=== PATIENT | female | born 1970 | race Asian ===

== ENCOUNTER 2016-09-21 10:39 | Emergency (ER) | payer MEDICAID ==
[~2016-09-21] VITALS: Wt 91.0 kg
[2016-09-21] MEDS ORDERED: ONDANSETRON (ODT) 4 MG TAB ODT STA (11:10)
[2016-09-21] MEDS ORDERED: MECLIZINE 12.5 MG TAB PO ONE (11:30)
[2016-09-21] MEDS ORDERED: SOD CHLORIDE 0.9% 1,000 ML IV STA (12:06)
[2016-09-21 12:48] LABS: BASOPHIL # 0.1 10^3/ul (0.0-0.1); BASOPHILS % 0.4 % (0.0-2.0); EOSINOPHILS # 0.2 10^3/ul (0.0-0.5); EOSINOPHILS % 1.3 % (0.0-7.0); HEMATOCRIT 38.7 % (37.0-47.0); HEMOGLOBIN 12.4 g/dl (12.0-16.0); LYMPHOCYTES # 4.5 10^3/ul (0.8-2.9); LYMPHOCYTES % 38.8 % (15.0-51.0); MEAN CORPUSCULAR HEMOGLOBIN 28.5 pg (29.0-33.0); MEAN PLATELET VOLUME 8.1 fl (7.4-10.4); MONOCYTE # 0.9 10^3/ul (0.3-0.9); MONOCYTES % 7.6 % (0.0-11.0); NEUTROPHIL # 5.9 10^3/ul (1.6-7.5); NEUTROPHILS % 51.6 % (39.0-77.0); PLATELET COUNT 481 10^3/UL (140-415); RED BLOOD COUNT 4.35 10^6/ul (4.20-5.40); RED CELL DISTRIBUTION WIDTH 13.6 % (11.5-14.5); WHITE BLOOD COUNT 11.5 10^3/ul (4.8-10.8)
--- NOTE | 2016-09-21 12:48 | RADRPT ---
PROCEDURE: CT Brain without contrast. CLINICAL INDICATION: dizzy TECHNIQUE: A CT of the brain was performed on a [employer]peed 64-slice CT scanner utilizing axial imaging from the skull base through the vertex without IV contrast. Multiplanar reformatted images were made. Images were reviewed on a PACS workstation. The CTDIvol is 43.48 mGy and the DLP is 630 .20 mGycm. COMPARISON: None FINDINGS: The sulci and ventricles are proportionate and within normal limits in size for patient's age. The rivers-white matter differentiation is preserved. There is no midline shift or mass effect. No ab normal extra-axial fluid collection is seen. Mild periventricular and deep cerebral white matter low attenuation is nonspecific, but most likely represents sequelae of mild chronic small vessel ischem ic white matter disease. Inferiorly within the fourth ventricle, near the left foramina of Luschka, there is a well-circumscr ibed 5 mm hyperdense lesion (series 2, image 6). This may represent a colloid cyst in an atypical l ocation, other hemorrhagic or proteinaceous cyst, or a partially calcified mass. Recommend MRI brai n with contrast for further evaluation. A 2 mm extra-axial hyperdensity in the left insula may represent a vascular calcification, but the p ossibility of a hyperdense artery sign indicating thrombus within a distal left middle cerebral gloria ry branch cannot be completely excluded. Sequelae of prior infection/inflammation, such as cysticer cosis, also cannot be excluded. The visualized paranasal sinuses, orbits, and osseous structures are grossly unremarkable. IMPRESSION: 1. Inferiorly within the fourth ventricle, near the left foramina of Luschka, there is a well-circu mscribed 5 mm hyperdense lesion (series 2, image 6). This may represent a colloid cyst in an atypic al location, other hemorrhagic or proteinaceous cyst, or a partially calcified mass. Recommend MRI brain with contrast for further evaluation. 2. 2 mm extra-axial hyperdensity in the left insula may represent a vascular calcification, but the possibility of a hyperdense artery sign indicating thrombus within a distal left middle cerebral ar jill branch cannot be completely excluded. Sequelae of prior infection/inflammation, such as cystic ercosis, also cannot be excluded. Recommend MRA brain in addition to MRI brain with contrast for fur ther evaluation. 3. Above findings were discussed with Dr. Phil Blount at 12:05 PM on 09/21/2016. RPTAT: AA Emmy Davidson, Physician Date Time Electronically viewed and signed by Emmy Davidson, Physician on 09/21/2016 12:48 RC/
[2016-09-21 13:12] LABS: INR 0.91; PROTIME 12.3 Sec (12.2-14.2)
[2016-09-21 13:15] LABS: CALCIUM 9.1 mg/dl (8.4-10.2); CREATININE 0.66 mg/dl (0.44-1.00); POTASSIUM 4.5 mmol/L (3.5-5.1)
[2016-09-21] MEDS ORDERED: ONDANSETRON 4 MG INJ IV STA (15:13)
[2016-09-21] MEDS ORDERED: morphine 4 MG/ML VIAL IV STA (15:13)
[2016-09-21 16:33] VITALS: BP 160/80; PULSE 77; RESP 18
--- NOTE | 2016-09-21 17:33 | RADRPT ---
PROCEDURE: MRA brain without and with contrast CLINICAL INDICATION: Dizziness TECHNIQUE: 3-D [id number] intracranial MRA was performed on a 3.0T scanner before and after adm inistration of 10 cc Magnevist intravenous contrast. Rotational MIP images were reformatted. The [facility] images were also reviewed. COMPARISON: CT brain 09/21/2016 FINDINGS: The bilateral internal carotid arteries are patent. The bilateral middle, anterior cerebral arterie s are patent. The bilateral vertebral arteries, basilar artery and bilateral posterior cerebral art eries are patent. No aneurysm, or vascular malformation is identified. IMPRESSION: Overall unremarkable MRA of the brain. RPTAT: VV .Mynor St MD, MD Date Time Electronically viewed and signed by .Mynor St MD, on 09/21/2016 17:33 .O/
--- NOTE | 2016-09-21 17:53 | RADRPT ---
PROCEDURE: MRI Brain without and with contrast. CLINICAL INDICATION: Dizziness TECHNIQUE: Multiplanar MRI of the brain without and with contrast was performed on a 3.0 T scanner with the following sequences obtained: T1-weighted, T2-weighted/FLAIR, diffusion weighted (with ADC map), GRE, postcontrast T1-weighted. 10 cc Magnevist intravenous contrast was administered. COMPARISON: CT, MRA brain 09/21/2016 FINDINGS: No acute/recent ischemic infarction or intracranial hemorrhage is identified. No extra-axial fluid collection is seen. A subtle very small lesion is identified in the inferior left fourth ventricle corresponding to the hyperdense lesion on CT which measures about 4 mm; it has faint marginal hypointensity on the GRE se quence (image 13, series 8), which suggests marginal calcification; otherwise, it is barely percepti ble on the other sequences (also seen on the post contrast coronal T1-weighted series, image 14, ser ies 5) and there is no associated enhancement. No increased T1-weighted/decreased T2-weighted signal intensity for significant susceptibility artifact is visualized to suggest hemorrhage, or proteinac eous contents. There is no mass effect or surrounding edema. There is no hydrocephalus. There is no mass effect. No midline shift is identified. The ventricles and sulci are within normal limits for size and configuration. There are a few minimal areas of increased T2-weighted FLAIR signal intensity in the deep white nena er which are nonspecific. No abnormal parenchymal, leptomeningeal or dural enhancement is identifie d. Flow voids are identified in the proximal intracranial arteries and dural sinuses suggesting patency . The mastoid air cells and paranasal sinuses are grossly clear. IMPRESSION: 1. No evidence of acute intracranial pathology. 2. Subtle very small, approximately 4 mm nonenhancing lesion in the inferior left fourth ventricle with associated signal changes suggesting marginal calcification. No associated mass effect, surrou nding edema, or hydrocephalus. The exact etiology is unclear but it is favored to be benign with co nsiderations including subependymoma, partially calcified cyst, possibly post infectious/inflammator y sequela. 3. Minimal nonspecific white matter changes, which may reflect chronic small vessel ischemic change s. RPTAT: VV .Mynor St MD, Date Time Electronically viewed and signed by .Mynor St MD, on 09/21/2016 17:53 .O/
[2016-09-21] MEDS ORDERED: MECL12.574 PO (18:22)
[2016-09-21] MEDS ORDERED: ONDA4TAB14 PO (18:22)
--- NOTE | 2016-09-21 18:33 | ERD ---
ER Documentation Chief Complaint Date/Time DATE: 09/21/16 TIME: 18:31 Chief Complaint DIZZY SINCE YESTERDAY HPI Patient is a 45-year-old female with no medical problems who presents with dizziness. She said that last night she started with dizziness and she has worse dizziness when she moves her head. The symptoms come and go. She had 2 episodes of vomiting. She had no fevers and no pain. She feels like the room is spinning. She has had no treatment as of yet. Upon review of old medical records this is the patient's first visit to the emergency department. She does not currently have a primary doctor. ROS All systems reviewed and are negative except as per history of present illness. Medications Home Meds Active Scripts Ondansetron (Ondansetron Odt) 4 Mg Tab.rapdis, 4 MG PO Q6H Y for NAUSEA AND/OR VOMITING, #30 TAB Prov:SLICK CHOWDHURY MD 09/21/16 Meclizine Hcl* (Antivert*) 12.5 Mg Tab, 25 MG PO Q6H Y for DIZZINESS, #20 TAB Prov:SLICK CHOWDHURY MD 09/21/16 Allergies Allergies: Coded Allergies: Penicillins (Unverified Allergy, Unknown, 09/21/16) PMhx/Soc Medical and Surgical Hx: pt denies Medical Hx, pt denies Surgical Hx Hx Cardiac Disorders: Yes (htn) Hx Alcohol Use: No Hx Substance Use: No Hx Tobacco Use: No Smoking Status: Never smoker FmHx Family History: diabetes Physical Exam Vitals Vital Signs Date Time Temp Pulse Resp B/P Pulse Ox O2 Delivery O2 Flow Rate FiO2 09/21/16 16:33 77 18 160/80 98 Room Air 09/21/16 10:49 98.0 84 18 188/90 99 Physical Exam Const: Moderate distress secondary to dizziness Head: Atraumatic Eyes: Normal Conjunctiva ENT: Normal External Ears, Nose and Mouth. Neck: Full range of motion..~ No meningismus. Resp: Clear to auscultation bilaterally Cardio: Regular rate and rhythm, no murmurs Abd: Soft, non tender, non distended. Normal bowel sounds Skin: No petechiae or rashes Back: No midline or flank tenderness Ext: No cyanosis, or edema Neur: Awake and alert, cranial nerves II through XII are intact, strength is 5 out of 5 in all 4 extremities, no pronator drift, no slurred speech Psych: Normal Mood and Affect Result Diagram: 09/21/16 1240 09/21/16 1240 Results 24 hrs Laboratory Tests Test 09/21/16 11:53 09/21/16 12:40 Bedside Glucose 83mg/dL White Blood Count 11.510^3/ul Red Blood Count 4.3510^6/ul Hemoglobin 12.4g/dl Hematocrit 38.7% Mean Corpuscular Volume 89.0fl Mean Corpuscular Hemoglobin 28.5pg Mean Corpuscular Hemoglobin Concent 32.0g/dl Red Cell Distribution Width 13.6% Platelet Count 37506^3/UL Mean Platelet Volume 8.1fl Neutrophils % 51.6% Lymphocytes % 38.8% Monocytes % 7.6% Eosinophils % 1.3% Basophils % 0.4% Nucleated Red Blood Cells % 0.0/100WBC Neutrophils # 5.910^3/ul Lymphocytes # 4.510^3/ul Monocytes # 0.910^3/ul Eosinophils # 0.210^3/ul Basophils # 0.110^3/ul Nucleated Red Blood Cells # 0.010^3/ul Prothrombin Time 12.3Sec Prothrombin Time Ratio 1.0 INR International Normalized Ratio 0.91 Activated Partial Thromboplast Time 32.0Sec Sodium Level 142mmol/L Potassium Level 4.5mmol/L Chloride Level 101mmol/L Carbon Dioxide Level 29mmol/L Anion Gap 17 Blood Urea Nitrogen 8mg/dl Creatinine 0.66mg/dl Glucose Level 82mg/dl Calcium Level 9.1mg/dl Current Medications Medications (Trade) Dose Ordered Sig/Javi Route PRN Reason Start Time Stop Time Status Last Admin Dose Admin Meclizine HCl (Antivert) 25 mg ONCE ONCE PO 09/21/16 11:30 09/21/16 11:31 DC 09/21/16 11:47 Ondansetron HCl 4 mg 4 mg ONCE STAT ODT 09/21/16 11:10 09/21/16 11:12 DC 09/21/16 11:47 Sodium Chloride (NS) 1,000 ml @ 1,000 mls/hr Q1H STAT IV 09/21/16 12:06 09/21/16 13:05 DC 09/21/16 13:33 Morphine Sulfate (morphine) 4 mg ONCE STAT IV 09/21/16 15:13 09/21/16 15:14 DC 09/21/16 15:24 Ondansetron HCl (Zofran Inj) 4 mg ONCE STAT IV 09/21/16 15:13 09/21/16 15:14 DC 09/21/16 15:24 Procedures/MDM Smoking Cessation Therapy: Pt. was lectured for greater than 3 minutes on the health risks of continued smoking and the benefits of cessation. CT brain shows lesion in the fourth ventricle and recommend MRI of the brain per radiology. MRI/MRA of the brain are done by radiology and showed no significant etiology per radiology. Patient is a 45-year-old female presents with dizziness. CT scan of the brain showed an abnormality in the fourth ventricle so MRI and MRA of the brain were obtained. This lesion was most likely a calcified cyst but there is no bleed. There is no obvious cancer. I doubt meningitis or stroke. I believe outpatient management is appropriate. The patient feels better after meclizine and Zofran. She will be given a prescription for meclizine and Zofran to go home with. I believe outpatient management is appropriate. Lab results and imaging study results were given to the patient prior to discharge. Observation Note: Time: 4 hours Family Hx: Positive for diabetes Evaluation: Multiple exams showed improving symptoms and no evidence of clinical decompensation. Departure Diagnosis: Primary Impression: Dizziness Condition: Fair Patient Instructions: Dizziness, Unk Cause Referrals: Your doctor Additional Instructions: Call your primary care doctor TOMORROW for an appointment during the next 1-2 days.See the doctor sooner or return here if your condition worsens before your appointment time. SLICK CHOWDHURY MD Sep 21, 2016 18:33
== END 2016-09-21 18:30 | disposition home or self-care (01) ==
LOC: E/R 10:39
DX: R42 Dizziness and giddiness (principal); I10 Essential (primary) hypertension; R55 Syncope and collapse
CPT/HCPCS: 70450; 70546; 70553; 80048; 82962; 85025; 85610; 85730; 93005; J2270; J2405; J7030; Z7610; 96374; 96375

== ENCOUNTER 2016-11-09 10:59 | Emergency (ER) | payer MEDICAID ==
[~2016-11-09] VITALS: Wt 110.0 kg
[~2016-11-09 10:59] MED LIST: MECL12.574 PO; ONDA4TAB14 PO
[2016-11-09] MEDS ORDERED: ONDANSETRON (ODT) 4 MG TAB ODT STA (11:40)
--- NOTE | 2016-11-09 11:48 | ERD ---
ER Documentation Chief Complaint Date/Time DATE: 11/09/16 TIME: 11:45 Chief Complaint FEVER X 1 WEEK HPI 46-year-old female with no relevant medical problems presents to the emergency department complaining of dizziness and subjective fever for the past week status. Patient states that she got her MMR and Tdap vaccinations on Saturday and the symptoms started Saturday night. Patient describes the dizziness when she lays down as if the room is spinning. Patient admits to having nausea but denies any vomiting. Patient denies diarrhea, abdominal pain, sore throat, cough, ear pain, congestion. ROS All systems reviewed and are negative except as per history of present illness. Medications Home Meds Active Scripts Acetaminophen* (Tylenol*) 325 Mg Tablet, 2 TAB PO Q4 Y for PAIN AND OR ELEVATED TEMP, #30 TAB Prov:DINESH MAHARAJ PA-C 11/09/16 Nitrofurantoin Monohyd Macrocr* (Macrobid*) 100 Mg Capsr, 100 MG PO BID for 7 Days, CAP Prov:DINESH MAHARAJ PA-C 11/09/16 Ondansetron (Ondansetron Odt) 4 Mg Tab.rapdis, 4 MG PO Q6H Y for NAUSEA AND/OR VOMITING, #30 TAB Prov:SLICK CHOWDHURY MD 09/21/16 Meclizine Hcl* (Antivert*) 12.5 Mg Tab, 25 MG PO Q6H Y for DIZZINESS, #20 TAB Prov:SLICK CHOWDHURY MD 09/21/16 Allergies Allergies: Coded Allergies: Penicillins (Unverified Allergy, Unknown, 09/21/16) PMhx/Soc Medical and Surgical Hx: pt denies Medical Hx, pt denies Surgical Hx Hx Cardiac Disorders: Yes (htn) Hx Alcohol Use: No Hx Substance Use: No Hx Tobacco Use: Yes (1/2 pack qd) Smoking Status: Current every day smoker Physical Exam Vitals Vital Signs Date Time Temp Pulse Resp B/P Pulse Ox O2 Delivery O2 Flow Rate FiO2 11/09/16 11:01 99.0 85 18 130/68 99 Physical Exam GENERAL: well-developed/well-nourished, in no apparent distress, non-toxic appearing HENT: NC/AT, bilateral tympanic membrane is normal with good cone of light, nares patent, oropharynx clear without exudates EYES: Conjunctiva normal, PERRLA, EOMI, no nystagmus noted NECK: Supple, no lymphadenopathy PULM: CTA bilaterally, no rales, rhonchi, or wheezing heard CV: Normal S1S2, RRR, good capillary refill GI: Soft, non-distended, normal bowel sounds, non-tender BACK: No midline tenderness, no masses, No CVAT EXT: No clubbing, cyanosis, or edema NEURO: Alert and orientated to person, place, and time. CN II-IIX intact. Gait and coordination were normal. Hand nursing assistants teacher strength were equal and within normal limits SKIN: Intact, normal turgor PSYCH: Normal mood and mentation, patient denied SI Results 24 hrs Laboratory Tests Test 11/09/16 11:59 Bedside Urine pH (LAB) 6.0 Bedside Urine Protein (LAB) 2+ Bedside Urine Glucose (UA) Negative Bedside Urine Ketones (LAB) 1+ Bedside Urine Blood 3+ Bedside Urine Nitrite (LAB) Positive Bedside Urine Leukocyte Esterase (L 3+ Current Medications Medications (Trade) Dose Ordered Sig/Javi Route PRN Reason Start Time Stop Time Status Last Admin Dose Admin Meclizine HCl (Antivert) 25 mg ONCE ONCE PO 11/09/16 12:00 11/09/16 12:01 DC 11/09/16 11:54 Ondansetron HCl (Zofran Odt) 8 mg ONCE STAT ODT 11/09/16 11:40 11/09/16 11:42 DC 11/09/16 11:54 Nitrofurantoin Macrocrystals (Macrobid) 100 mg ONCE STAT PO 11/09/16 11:53 11/09/16 11:54 DC 11/09/16 12:03 Ceftriaxone Sodium (Rocephin) 1 gm ONCE STAT IM 11/09/16 11:54 11/09/16 11:55 DC 11/09/16 12:03 Procedures/MDM 46-year-old female with no relevant medical problems presents to the emergency department complaining of dizziness and subjective fever for the past week status. Patient states that she got her MMR and Tdap vaccinations on Saturday and the symptoms started Saturday night. Patient likely has a urinary tract infection due to urinalysis. No evidence of sepsis, pyelonephritis, appendicitis, central vertigo. In the ED, patient was given Antivert 25mg and Zofran 8mg ODT.Patient was given ceftriaxone and Macrobid. hemodynamically stable and neurovascular intact to be discharged home. I have discussed the pathology of the condition. Prescriptions Macrobid and Tylenol have been given. I have discussed to see a primary care physician for follow-up examination and management. Discussed to return to the ER if condition worsens or not improves as expected. Patient expressed that they agreed and understood this plan. Departure Diagnosis: Primary Impression: UTI (urinary tract infection) Additional Impression: Dizziness Condition: Stable DINESH MAHARAJ PA-C Nov 09, 2016 11:48
[2016-11-09 11:53] LABS: URINE BLOOD (Dip) POC 3+ (NEGATIVE)
[2016-11-09] MEDS ORDERED: NITROFURANTOIN (SR) 100 MG CAP PO STA (11:53)
[2016-11-09] MEDS ORDERED: CEFTRIAXONE 1 GM INJ IM STA (11:54)
[2016-11-09] MEDS ORDERED: ACET325T33 PO (11:55)
[2016-11-09] MEDS ORDERED: NITR-58 PO (11:55)
[2016-11-09] MEDS ORDERED: MECLIZINE 12.5 MG TAB PO ONE (12:00)
[2016-11-09 12:46] LABS: ADD UMIC YES; UR ASCORBIC ACID NEGATIVE (NEGATIVE); UR BACTERIA FEW /HPF (NONE SEEN); UR BILIRUBIN (Dip) NEGATIVE (NEGATIVE); UR BLOOD (Dip) 3+ mg/dL (NEGATIVE); UR CLARITY CLOUDY (CLEAR); UR COLOR AMBER (YELLOW); UR GLUCOSE (Dip) NEGATIVE (NEGATIVE); UR KETONES (Dip) TRACE mg/dL (NEGATIVE); UR LEUKOCYTE ESTERASE (Dip) 3+ Leu/ul (NEGATIVE); UR MUCUS FEW /HPF (NONE SEEN); UR NITRITE (Dip) POSITIVE (NEGATIVE); UR RBC 29 /HPF (0-5); UR SPECIFIC GRAVITY (Dip) 1.017 (1.003-1.030); UR SQUAMOUS EPITHELIAL CELL MODERATE /HPF (FEW); UR TOTAL PROTEIN (Dip) 2+ mg/dl (NEGATIVE); UR UROBILINOGEN (Dip) 1+ mg/dL (NEGATIVE); UR WBC CLUMPS MANY /HPF (NONE SEEN)
== END 2016-11-09 12:24 | disposition home or self-care (01) ==
LOC: FTE 10:59
DX: N39.0 Urinary tract infection, site not specified (principal); R42 Dizziness and giddiness; R11.0 Nausea
CPT/HCPCS: 81001; 96372; J0696; Z7502; Z7610; 81003

== ENCOUNTER 2017-01-06 23:16 | Emergency (ER) | payer MEDICAID ==
[~2017-01-06] VITALS: Ht 160 cm; Wt 93.0 kg
[~2017-01-06 23:16] MED LIST changes: +ACET325T33 PO; +NITR-58 PO
[2017-01-06 23:23] VITALS: Ht 160 cm; Wt 93.0 kg
[2017-01-07] MEDS ORDERED: KETOROLAC 30 MG INJ IV STA (01:34)
[2017-01-07 02:23] LABS: ADD UMIC YES; UR ASCORBIC ACID NEGATIVE (NEGATIVE); UR BACTERIA MODERATE /HPF (NONE SEEN); UR BILIRUBIN (Dip) NEGATIVE (NEGATIVE); UR BLOOD (Dip) 1+ mg/dL (NEGATIVE); UR CLARITY CLOUDY (CLEAR); UR COLOR YELLOW (YELLOW); UR GLUCOSE (Dip) NEGATIVE (NEGATIVE); UR KETONES (Dip) NEGATIVE (NEGATIVE); UR LEUKOCYTE ESTERASE (Dip) 3+ Leu/ul (NEGATIVE); UR MUCUS MANY /HPF (NONE SEEN); UR NITRITE (Dip) NEGATIVE (NEGATIVE); UR RBC 13 /HPF (0-5); UR SPECIFIC GRAVITY (Dip) 1.026 (1.003-1.030); UR SQUAMOUS EPITHELIAL CELL MODERATE /HPF (FEW); UR TOTAL PROTEIN (Dip) 2+ mg/dl (NEGATIVE); UR URIC ACID CRYSTAL FEW /HPF (NONE SEEN); UR UROBILINOGEN (Dip) NEGATIVE (NEGATIVE)
--- NOTE | 2017-01-07 02:31 | RADRPT ---
PROCEDURE: XR Lumbar Spine. CLINICAL INDICATION: Back pain, radicular symptoms. TECHNIQUE: AP, lateral and cone-down lateral view of the lumbar spine were obtained. COMPARISON: No prior studies are available for comparison. FINDINGS: There is normal vertebral mineralization and alignment. No fracture or subluxation is seen. There is moderate L1-2 and L5-S1 disc height loss. The posterior elements are unremarkable. The soft tissues appear normal. Narrowing and sclerosis of the right sacroiliac joint is noted. IMPRESSION: Moderate L1-2 and L5-S1 disc space narrowing. Physician Jimenez Date Time Electronically viewed and signed by Physician Jimenez on 01/07/2017 02:30 CS/
--- NOTE | 2017-01-07 02:34 | RADRPT ---
PROCEDURE: US Pelvis. CLINICAL INDICATION: pelvic pain TECHNIQUE: Multiple sonographic images of the pelvis were obtained utilizing a transabdominal and endovaginal technique. The images were reviewed on a PACS workstation. COMPARISON: None. FINDINGS: The uterus is heterogeneous and measures 7.7 x 5.6 x 5.2 cm. 4.6 x 4 x 4.4 cm anterior fundal leiomy elana is identified.. The endometrial echo complex is hyperechoic and measures 7.0 mm. There is no meena dence for free fluid. The ovaries are not visualized. No adnexal mass is seen. IMPRESSION: Heterogeneous uterus with a 4.6 cm anterior fundal leiomyoma. The ovaries are not visualized. Physician Jimenez Date Time Electronically viewed and signed by Physician Jimenez on 01/07/2017 02:34 CS/
--- NOTE | 2017-01-07 02:38 | ERD ---
ER Documentation Chief Complaint Chief Complaint LBP WITH RADIATING BILAT HIP PX, AP WHEN LYING FLAT, POST-MENAPAUSAL 5MON HPI This is a 6-year-old female who presents to the emergency department today complaining of low back pain that radiates into her back of her left leg and lower pelvic pain for the past 3 days. States she has taken ibuprofen. Denies any vaginal bleeding, vaginal discharge, fevers or chills, nausea or vomiting. ROS All systems reviewed and are negative except as per history of present illness. Medications Home Meds Active Scripts Naproxen* (Naprosyn*) 500 Mg Tablet, 500 MG PO BID Y for PAIN AND/OR INFLAMMATION, #30 TAB Prov:SINAI MIMS PA-C 01/07/17 Cephalexin* (Keflex*) 500 Mg Capsule, 500 MG PO QID for 7 Days, CAP Prov:SINAI MIMS PA-C 01/07/17 Tramadol HCl (Tramadol HCl) 50 Mg Tablet, 50 MG PO Q4 Y for PAIN, #20 TAB Prov:SINAI MIMS PA-C 01/07/17 Acetaminophen* (Tylenol*) 325 Mg Tablet, 2 TAB PO Q4 Y for PAIN AND OR ELEVATED TEMP, #30 TAB Prov:DINESH MAHARAJ PA-C 11/09/16 Nitrofurantoin Monohyd Macrocr* (Macrobid*) 100 Mg Capsr, 100 MG PO BID for 7 Days, CAP Prov:DINESH MAHARAJ PA-C 11/09/16 Ondansetron (Ondansetron Odt) 4 Mg Tab.rapdis, 4 MG PO Q6H Y for NAUSEA AND/OR VOMITING, #30 TAB Prov:SLICK CHOWDHURY MD 09/21/16 Meclizine Hcl* (Antivert*) 12.5 Mg Tab, 25 MG PO Q6H Y for DIZZINESS, #20 TAB Prov:SLICK CHOWDHURY MD 09/21/16 Allergies Allergies: Coded Allergies: Penicillins (Unverified Allergy, Unknown, 09/21/16) PMhx/Soc Hx Neurological Disorder: Yes (dizziness) Hx Cardiac Disorders: Yes (htn) Hx Alcohol Use: No Hx Substance Use: No Hx Tobacco Use: Yes (1/2 pack qd) Smoking Status: Current every day smoker Physical Exam Vitals Vital Signs Date Time Temp Pulse Resp B/P Pulse Ox O2 Delivery O2 Flow Rate FiO2 01/06/17 23:23 97.8 79 18 160/77 99 Physical Exam Const: NAD Head: Atraumatic Eyes: Normal Conjunctiva ENT: Normal External Ears, Nose and Mouth. Neck: Full range of motion..~ No meningismus. Resp: Clear to auscultation bilaterally Cardio: Regular rate and rhythm, no murmurs Abd: Soft, pelvic pain, non distended. Normal bowel sounds. No tenderness at McBurneys Skin: No petechiae or rashes Back: No midline tenderness. Sided paraspinal tenderness. No CVA tenderness. Ext: No cyanosis, or edema Neur: Awake and alert Psych: Normal Mood and Affect Results 24 hrs Laboratory Tests Test 01/07/17 01:48 Urine Color YELLOW Urine Clarity CLOUDY Urine pH 5.0 Urine Specific [place] 1.026 Urine Ketones NEGATIVEmg/dL Urine Nitrite NEGATIVEmg/dL Urine Bilirubin NEGATIVEmg/dL Urine Urobilinogen NEGATIVEmg/dL Urine Leukocyte Esterase 3+Angelita/ul Urine Microscopic RBC 13/HPF Urine Microscopic WBC 33/HPF Urine Squamous Epithelial Cells MODERATE/HPF Urine Uric Acid Crystals FEW/HPF Urine Bacteria MODERATE/HPF Urine Mucus MANY/HPF Urine Hemoglobin 1+mg/dL Urine Glucose NEGATIVEmg/dL Urine Total Protein 2+mg/dl Current Medications Medications (Trade) Dose Ordered Sig/Javi Route PRN Reason Start Time Stop Time Status Last Admin Dose Admin Ketorolac Tromethamine (Toradol) 30 mg ONCE STAT IV 01/07/17 01:34 01/07/17 01:37 DC 01/07/17 02:10 Cephalexin (Keflex) 500 mg ONCE ONCE PO 01/07/17 03:00 01/07/17 03:01 01/07/17 02:51 DIAGNOSTIC IMAGING REPORT Patient: NIKO LEE : 1970 Age: 46 Sex: F MR #: [id number] DOS: 01/07/17 0000 Ordering MD: SINAI MIMS PA-C Location: [facility] Room/Bed: PROCEDURE: XR Lumbar Spine. CLINICAL INDICATION: Back pain, radicular symptoms. TECHNIQUE: AP, lateral and cone-down lateral view of the lumbar spine were obtained. COMPARISON: No prior studies are available for comparison. FINDINGS: There is normal vertebral mineralization and alignment. No fracture or subluxation is seen. There is moderate L1-2 and L5-S1 disc height loss. The posterior elements are unremarkable. The soft tissues appear normal. Narrowing and sclerosis of the right sacroiliac joint is noted. IMPRESSION: Moderate L1-2 and L5-S1 disc space narrowing. Physician Jimenez Date Time Electronically viewed and signed by Physician Jimenez on 01/07/2017 02: 30 CS/ CC: SINAI MIMS PA-C DIAGNOSTIC IMAGING REPORT Patient: NIKO LEE : 1970 Age: 46 Sex: F MR #: [id number] DOS: 01/07/17 0000 Ordering MD: SINAI MIMS PA-C Location: [facility] Room/Bed: PROCEDURE: US Pelvis. CLINICAL INDICATION: pelvic pain TECHNIQUE: Multiple sonographic images of the pelvis were obtained utilizing a transabdominal and endovaginal technique. The images were reviewed on a PACS workstation. COMPARISON: None. FINDINGS: The uterus is heterogeneous and measures 7.7 x 5.6 x 5.2 cm. 4.6 x 4 x 4.4 cm anterior fundal leiomyoma is identified.. The endometrial echo complex is hyperechoic and measures 7.0 mm. There is no evidence for free fluid. The ovaries are not visualized. No adnexal mass is seen. IMPRESSION: Heterogeneous uterus with a 4.6 cm anterior fundal leiomyoma. The ovaries are not visualized. Physician Jimenez Date Time Electronically viewed and signed by Physician Jimenez on 01/07/2017 02: 34 CS/ CC: SINAI MIMS PA-C Procedures/MDM This is a 46-year-old female who presents to the emergency department today complaining multiple complaints specifically of low back pain and pelvic pain for the past 3 days. On physical exam patient had left-sided back pain that radiates into her left leg and lower pelvic pain. She is afebrile and otherwise well-appearing she does not have any vaginal bleeding. She indicated that she has not had her menstrual cycle for 5 months. Given patient's complaints I did obtain a UA, lumbar spine film as she did have some radicular symptoms into her left leg as well as a pelvic ultrasound UA shows 3+ leukocyte esterase and 33 microscopic white blood cells and 13 microscopic red blood cells with moderate bacteria. Urine was sent for culture test is negative Ultrasound pelvis shows a heterogeneous uterus with a 4.6 cm anterior fundal leiomyoma. Ovaries are not visualized. There is no evidence for free fluid. There is no adnexal mass seen. Lumbar spine films show no fracture or subluxation. There is moderate L1 and L2 and L5 and S1 disc height loss. Soft tissues are normal. There is narrowing and sclerosis of the right SI joint. Symptoms at this time is consistent with back pain, pelvic pain possibly related to fibroids and urinary tract infection. She has no tenderness in her right lower quadrant and no tenderness at McBurney's and I do not feel that she requires further workup or imaging at this time. She is afebrile and otherwise well-appearing. She has no CVA tenderness and I have low suspicion for pyelonephritis or nephrolithiasis Patient was given Toradol here in the emergency department and pain improved. She will be given a prescription for Tramadol, Naprosyn,Keflex for home. Patient was given her first dose of Keflex here in the emergency department. At this time the patient is stable for discharge and outpatient management. Patient should follow up with their PCP in the next 1-2 days. They may return to the emergency department sooner for any persistent or worsening of symptoms. Patient understood and agreed with the plan. Departure Diagnosis: Primary Impression: Multiple complaints Additional Impression: UTI (urinary tract infection) Urinary tract infection type: site unspecified Hematuria presence: with hematuria Qualified Code: N39.0 - Urinary tract infection with hematuria, site unspecified Condition: Fair SINAI MIMS PA-C Jan 07, 2017 02:38
[2017-01-07] MEDS ORDERED: TRAM50TA2 PO (02:50)
[2017-01-07] MEDS ORDERED: CEPH-443 PO (02:50)
[2017-01-07] MEDS ORDERED: NAPR-260 PO (02:50)
[2017-01-07] MEDS ORDERED: CEPHALEXIN 500 MG CAP PO ONE (03:00)
== END 2017-01-07 03:22 | disposition home or self-care (01) ==
LOC: FTE 23:16
DX: N39.0 Urinary tract infection, site not specified (principal); R10.2 Pelvic and perineal pain; I10 Essential (primary) hypertension; F17.210 Nicotine dependence, cigarettes, uncomplicated
CPT/HCPCS: 72100; 76830; 76856; 81001; 87086; 96374; J1885; Z7502; Z7610

== ENCOUNTER 2017-01-19 16:56 | Emergency (ER) | payer MEDICAID ==
[~2017-01-19] VITALS: Ht 160 cm; Wt 92.2 kg
[~2017-01-19 16:56] MED LIST changes: +CEPH-443 PO; +NAPR-260 PO; +TRAM50TA2 PO
[2017-01-19 17:02] VITALS: Ht 160 cm; Wt 92.2 kg
--- NOTE | 2017-01-19 17:41 | ERD ---
ER Documentation Chief Complaint Chief Complaint lower back pain that radiates down bilat legs x yesterdsay HPI Back pain , seen here and treated for DDD, with naproxen and tramadol . pt reports using all of the medication as prescribed and that she saw her PMD, who is sending her for imaging. pt reports pain is bilateral worse on left side , pt reports worse over the last 2 days, pt has used a tends unit, IBU and Flexeril, pain is 10/10 Chart Review PROCEDURE: XR Lumbar Spine. CLINICAL INDICATION: Back pain, radicular symptoms. TECHNIQUE: AP, lateral and cone-down lateral view of the lumbar spine were obtained. COMPARISON: No prior studies are available for comparison. FINDINGS: There is normal vertebral mineralization and alignment. No fracture or subluxation is seen. There is moderate L1-2 and L5-S1 disc height loss. The posterior elements are unremarkable. The soft tissues appear normal. Narrowing and sclerosis of the right sacroiliac joint is noted. IMPRESSION: Moderate L1-2 and L5-S1 disc space narrowing. Demetrio Roe Physician Date Time Electronically viewed and signed by Demetrio Roe Physician on 01/07/2017 02: 30 CS/ ROS All systems reviewed and are negative except as per history of present illness. Medications Home Meds Active Scripts Naproxen* (Naprosyn*) 500 Mg Tablet, 500 MG PO BID Y for PAIN AND/OR INFLAMMATION, #30 TAB Prov:SINAI MIMS PA-C 01/07/17 Cephalexin* (Keflex*) 500 Mg Capsule, 500 MG PO QID for 7 Days, CAP Prov:SINAI MIMS PA-C 01/07/17 Tramadol HCl (Tramadol HCl) 50 Mg Tablet, 50 MG PO Q4 Y for PAIN, #20 TAB Prov:SINAI MIMS PA-C 01/07/17 Acetaminophen* (Tylenol*) 325 Mg Tablet, 2 TAB PO Q4 Y for PAIN AND OR ELEVATED TEMP, #30 TAB Prov:DINESH MAHARAJ PA-C 11/09/16 Nitrofurantoin Monohyd Macrocr* (Macrobid*) 100 Mg Capsr, 100 MG PO BID for 7 Days, CAP Prov:DINESH MAHARAJ PA-C 11/09/16 Ondansetron (Ondansetron Odt) 4 Mg Tab.rapdis, 4 MG PO Q6H Y for NAUSEA AND/OR VOMITING, #30 TAB Prov:SLICK CHOWDHURY MD 09/21/16 Meclizine Hcl* (Antivert*) 12.5 Mg Tab, 25 MG PO Q6H Y for DIZZINESS, #20 TAB Prov:SLICK CHOWDHURY MD 09/21/16 Allergies Allergies: Coded Allergies: Penicillins (Unverified Allergy, Unknown, 01/19/17) PMhx/Soc Medical and Surgical Hx: pt denies Medical Hx, pt denies Surgical Hx Hx Neurological Disorder: Yes (dizziness) Hx Cardiac Disorders: Yes (htn) Hx Alcohol Use: No Hx Substance Use: No Hx Tobacco Use: Yes Smoking Status: Current every day smoker Physical Exam Vitals Vital Signs Date Time Temp Pulse Resp B/P Pulse Ox O2 Delivery O2 Flow Rate FiO2 01/19/17 17:02 99.0 97 20 165/86 99 Stable, triage notes reviewed blood pressure noted to be 165/86 Physical Exam Const: Nourished, well-hydrated, well-appearing 46-year-old female in obvious discomfort, remaining in a wheelchair trying to find position of comfort. Facial grimacing noted. Head: Eyes: ENT: Neck: Resp: Cardio: Abd: Skin: Back: Back Exam: Skin: [No bruising or rash] Compartments: Soft Motor: AROM flexion and extension of bilateral hip/knee/ ankle/foot, patient able to raise legs off of a seated position in wheelchair, unable to stand or get into gurney secondary to lumbar back pain Sensation: Intact to light touch throughout Bones: No midline TTP Ext: No cyanosis, or edema Neur: Awake and alert Psych: Normal Mood and Affect Results 24 hrs Current Medications Medications (Trade) Dose Ordered Sig/Javi Route PRN Reason Start Time Stop Time Status Last Admin Dose Admin Prednisone (Prednisone) 60 mg ONCE ONCE PO 01/19/17 18:00 01/19/17 18:01 DC 01/19/17 17:48 Oxycodone/ Acetaminophen (Percocet (5/ 325)) 1 tab ONCE ONCE PO 01/19/17 18:00 01/19/17 18:01 DC 01/19/17 17:48 Hydromorphone HCl (Dilaudid) 0.5 mg ONCE STAT IM 01/19/17 19:14 01/19/17 19:15 DC 01/19/17 19:27 Departure Condition: Good Patient Instructions: Back Pain (Acute Or Chronic) Referrals: [facility] Additional Instructions: Thank you for for coming to [facility] for your care today. Please ask your nurse or provider if you have questions about your care today and do not leave until all your questions have been answered. Please use any medications given as directed and follow-up with your doctor (or the doctor you were referred to) in the next 2-3 days. If you do not have a primary care doctor you may follow up at the [facility] (listed below). You may also use motrin and tylenol as needed for fever and/or pain unless instructed otherwise by your provider or nurse. Indications for more urgent follow-up have been discussed, but you may return to the Emergency Department at ANY time for any worrisome or worsening symptoms. If you have abdominal pain, please know that no test or exam you received is perfect and you should follow up within 8 hours for continued pain. If you had any imaging studies today, such as an X-Ray or CT Scan, these studies will be reviewed later by a radiologist. You will be called if there are important findings that were not identified today, so make sure the contact information you provided at registration is correct. If you received any narcotic pain control medicine today, such as Vicodin, Morphine or Dilaudid, your coordination and judgment may be affected for a number of hours. Please do not drive or operate heavy machinery, and you may want someone to assist you at home. If you were given a prescription for narcotic medication, be aware that it is very addictive- use sparingly and only if necessary. OANH SPENCE Jan 19, 2017 17:41
[2017-01-19] MEDS ORDERED: OXYCODONE/ACETAMINOPHEN (5/325) TAB PO ONE (18:00)
[2017-01-19] MEDS ORDERED: predniSONE 20 MG TAB PO ONE (18:00)
[2017-01-19] MEDS ORDERED: HYDROmorphONE 0.5 MG/0.5 ML SYG IM STA (19:14)
[2017-01-19] MEDS ORDERED: NAPR-260 PO (19:48)
[2017-01-19] MEDS ORDERED: FAMO20TA18 PO (19:48)
[2017-01-19] MEDS ORDERED: PRED20TA PO (19:49)
[2017-01-19] MEDS ORDERED: TRAM50TA2 PO (19:50)
[2017-01-19 20:04] VITALS: BP 154/83; PULSE 84; RESP 20; TEMP 98.8
== END 2017-01-19 20:10 | disposition home or self-care (01) ==
LOC: FTE 16:56
DX: M54.5 Low back pain (principal); I10 Essential (primary) hypertension; F17.210 Nicotine dependence, cigarettes, uncomplicated
CPT/HCPCS: 96372; J1170; J7512; Z7502; Z7610